=== PATIENT | male | born 1970 | race Caucasian/White ===

== ENCOUNTER 2019-03-26 16:09 | Emergency (ER) | payer OTHER ==
[~2019-03-26] VITALS: Ht 190.5 cm; Wt 150.0 kg
[2019-03-26] MEDS ORDERED: VITA1CAP25 PO (20:03)
[2019-03-26] MEDS ORDERED: NAPR-885 PO (20:03)
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
[2019-03-26] MEDS ORDERED: IBUP80TA PO (21:45)
[2019-03-26] MEDS ORDERED: CYCL5TAB PO (21:45)
[2019-03-26] MEDS ORDERED: KETOROLAC TROMETHAMINE 10 MG TAB PO ONE (21:45)
[2019-03-26] MEDS ORDERED: CYCLOBENZAPRINE 5MG TABLET PO ONE (21:45)
[2019-03-26 22:23] VITALS: BP 146/81
--- NOTE | 2019-03-27 14:04 | ED PDOC ---
Post-Departure Follow-Up dr salter and dr ding faxed formal report of ct c spine for Pia Victoria MD Mar 27, 2019 14:04
== END 2019-03-26 22:24 | disposition home or self-care (01) ==
LOC: M ED 16:09
DX: S06.0X0A Concussion without loss of consciousness, initial encounter (principal); S12.500A Unspecified displaced fracture of sixth cervical vertebra, initial encounter for closed fracture; V49.49XA Driver injured in collision with other motor vehicles in traffic accident, initial encounter; Y92.410 Unspecified street and highway as the place of occurrence of the external cause; I10 Essential (primary) hypertension; E78.5 Hyperlipidemia, unspecified; E03.9 Hypothyroidism, unspecified

== ENCOUNTER 2024-09-04 15:28 | Observation (INO) | payer OTHER ==
[~2024-09-04] VITALS: Ht 190.5 cm; Wt 126.6 kg
[~2024-09-04 15:28] MED LIST: CYCL5TAB4 PO; IBUP80TA PO; NAPR-885 PO; VITA1CAP25 PO
[2024-09-04 16:04] LABS: BASO # 0.1 10^3/uL (0.0-0.2); BASO % 0.5 % (0.0-1.0); EOS # 0.2 10^3/uL (0.0-0.5); EOS % 2.4 % (0.0-3.0); HEMATOCRIT 49.7 % (42.0-52.0); HEMOGLOBIN 18.1 g/dl (13.5-17.5); LYMPH # 2.7 10^3/uL (1.5-5.0); LYMPH % 29.7 % (24.0-44.0); MEAN CORPUSCULAR HEMOGLOBIN 34.3 pg (27.0-33.0); MEAN CORPUSCULAR HGB CONC 36.4 g/dl (32.0-36.5); MEAN CORPUSCULAR VOLUME 94.3 fl (80.0-96.0); MONO # 0.8 10^3/uL (0.0-0.8); MONO % 8.2 % (2.0-8.0); NEUTROPHILS # 5.4 10^3/uL (1.5-8.5); NEUTROPHILS % 58.8 % (36.0-66.0); RED BLOOD COUNT 5.27 10^6/uL (4.30-6.10); WHITE BLOOD COUNT 9.2 10^3/uL (4.0-10.0)
[2024-09-04] MEDS: METOPROLOL 5 MG/5 ML VIAL IV SCH (16:04)
[2024-09-04] MEDS ORDERED: METF-877 PO (16:10)
[2024-09-04] MEDS ORDERED: GLIM2TAB4 PO (16:10)
[2024-09-04] MEDS ORDERED: SIMV40TA20 PO (16:10)
[2024-09-04] MEDS ORDERED: LISI40TA4 PO (16:10)
[2024-09-04] MEDS ORDERED: LEVO50TA5 PO (16:10)
[2024-09-04] MEDS ORDERED: ERGO500029 PO (16:10)
[2024-09-04 16:21] LABS: PLATELET COUNT, AUTOMATED 95 10^3/uL (150-450)
[2024-09-04 16:26] LABS: ALKALINE PHOSPHATASE 130 U/L (40-129); ALT/SGPT 60 U/L (7.0-40); AST/SGOT 51 U/L (<34); BILIRUBIN,DIRECT 0.5 MG/DL (<0.4); BILIRUBIN,TOTAL 1.3 MG/DL (0.3-1.2); BLOOD UREA NITROGEN 19 MG/DL (9-23); CALCIUM LEVEL 9.7 MG/DL (8.5-10.1); CARBON DIOXIDE LEVEL 24 MMOL/L (20-31); CHLORIDE LEVEL 101 MMOL/L (98-107); CK-MB VALUE MASS 1.9 NG/ML (<3.6); CREATININE FOR GFR 0.79 MG/DL (0.70-1.30); GLOMERULAR FILTRATION RATE > 90.0 (>56); GLUCOSE, FASTING 351 MG/DL (60-100); MAGNESIUM LEVEL 1.6 MG/DL (1.8-2.4); PHOSPHORUS LEVEL 2.7 MG/DL (2.5-4.9); POTASSIUM SERUM 4.1 MMOL/L (3.5-5.1); SODIUM LEVEL 136 MMOL/L (136-145); TOTAL PROTEIN 7.6 G/DL (5.7-8.2)
[2024-09-04 16:29] LABS: PARTIAL THROMBOPLASTIN TIME 31.2 SECONDS (24.8-34.2); PROTHROMBIN TIME 13.5 SECONDS (12.5-14.5)
[2024-09-04 16:31] LABS: FREE T4 1.21 NG/DL (0.89-1.76); THYROID STIMULATING HORMONE 2.838 uIU/ML (0.55-4.78)
[2024-09-04 16:32] LABS: CPK CREATINE PHOSPHOKINASE 66 U/L (46-171); MB/CK RELATIVE INDEX 2.87 (< OR =4)
[2024-09-04 17:26] LABS: CK-MB VALUE MASS 2.6 NG/ML (<3.6)
[2024-09-04 17:29] LABS: MB/CK RELATIVE INDEX 2.2 (< OR =4)
[2024-09-04] MEDS: MAGNESIUM OXIDE 400MG TAB (MAG-OX) PO ONE (18:22)
[2024-09-04] MEDS: APIXABAN 5 MG TAB (ELIQUIS) PO ONE (18:27)
[2024-09-04] MEDS: METOPROLOL SUCC (TopROL XL) 50MG **XL** TAB PO ONE (18:28)
[2024-09-04] MEDS ORDERED: METF500T13 PO (18:32)
[2024-09-04] MEDS ORDERED: HOME MED LIST COMPLETE! XX SCH (18:35)
[2024-09-04] MEDS ORDERED: GLUCAGON INJ 1MG VIAL SC PRN (20:35)
[2024-09-04] MEDS ORDERED: DEXTROSE 50% 50ML SYRINGE IV PRN (20:35)
[2024-09-04] MEDS ORDERED: GLUCOSE 4 GM CHEW PO PRN (20:35)
[2024-09-04] MEDS: INSULIN LISPRO (NovoLOG) PER UNIT SC SCH (21:52)
[2024-09-04] MEDS: amLODIPine 5 MG TAB PO SCH (21:52)
[2024-09-04 22:45] VITALS: BP 112/76; TEMP 98; O2SAT 98
[2024-09-05 04:01] VITALS: BP 121/88; TEMP 97.2; O2SAT 98
[2024-09-05 04:36] LABS: HEMATOCRIT 46.4 % (42.0-52.0); HEMOGLOBIN 16.6 g/dl (13.5-17.5); MEAN CORPUSCULAR HEMOGLOBIN 33.9 pg (27.0-33.0); MEAN CORPUSCULAR HGB CONC 35.8 g/dl (32.0-36.5); MEAN CORPUSCULAR VOLUME 94.7 fl (80.0-96.0); PLATELET COUNT, AUTOMATED 101 10^3/uL (150-450); WHITE BLOOD COUNT 7.6 10^3/uL (4.0-10.0)
[2024-09-05 04:46] LABS: CHOLESTEROL RISK RATIO 6.42 (<5); HDL CHOLESTEROL 33.3 MG/DL (>40); LDL CHOLESTEROL 122.9 MG/DL (<100); NON-HDL-C 180.7 MG/DL
[2024-09-05 04:47] LABS: ALBUMIN 3.2 G/DL (3.2-5.2); ALKALINE PHOSPHATASE 109 U/L (40-129); ALT/SGPT 51 U/L (7.0-40); AST/SGOT 53 U/L (<34); BILIRUBIN,TOTAL 0.8 MG/DL (0.3-1.2); BLOOD UREA NITROGEN 20 MG/DL (9-23); CALCIUM LEVEL 8.8 MG/DL (8.5-10.1); CARBON DIOXIDE LEVEL 26 MMOL/L (20-31); CHLORIDE LEVEL 104 MMOL/L (98-107); CREATININE FOR GFR 0.62 MG/DL (0.70-1.30); GLOMERULAR FILTRATION RATE > 90.0 (>56); GLUCOSE, FASTING 312 MG/DL (60-100); POTASSIUM SERUM 3.8 MMOL/L (3.5-5.1); SODIUM LEVEL 137 MMOL/L (136-145); THYROID STIMULATING HORMONE 2.09 uIU/ML (0.55-4.78); TOTAL PROTEIN 6.5 G/DL (5.7-8.2)
[2024-09-05 05:03] LABS: HEMOGLOBIN A1c 9.7 % (4.0-6.0)
[2024-09-05] MEDS ORDERED: ENOXAPARIN 60MG/0.6ML SYRINGE (J1650 PER 10MG) SC SCH (06:00)
[2024-09-05] MEDS: LEVOTHYROXINE 50MCG TABLET (0.05MG) PO SCH (06:48)
[2024-09-05 07:56] VITALS: BP 119/79; TEMP 97.3; O2SAT 97
[2024-09-05] MEDS: ENOXAPARIN 120MG/0.8ML SYRINGE SC SCH (08:54)
[2024-09-05] MEDS: ASPIRIN 325 MG TAB PO SCH (08:55)
[2024-09-05 09:00] VITALS: BP 119/79
[2024-09-05] MEDS: METOPROLOL TART 25 MG TABLET PO SCH (09:00)
[2024-09-05] MEDS: lisinopriL 40MG TAB PO SCH (09:01)
[2024-09-05] MEDS: INSULIN LISPRO (NovoLOG) PER UNIT SC SCH (09:10)
[2024-09-05] MEDS ORDERED: ASPI-1 PO (10:11)
[2024-09-05] MEDS ORDERED: METO1TAB87 PO (10:11)
[2024-09-05] MEDS ORDERED: SIMVASTATIN 20 MG TAB PO SCH (21:00)
== END 2024-09-05 11:29 | disposition home or self-care (01) ==
LOC: M ED 15:28 → M ED INP 15:29 → M PCU 22:40
PROVIDERS: ADMIT Student in an Organized Health Care Education/Training Program; ATTEND Student in an Organized Health Care Education/Training Program
DX: I48.91 Unspecified atrial fibrillation (principal); I10 Essential (primary) hypertension; Z91.148 Patient's other noncompliance with medication regimen for other reason; E03.9 Hypothyroidism, unspecified; E78.5 Hyperlipidemia, unspecified; E11.65 Type 2 diabetes mellitus with hyperglycemia; E55.9 Vitamin D deficiency, unspecified; Z82.49 Family history of ischemic heart disease and other diseases of the circulatory system; Z87.891 Personal history of nicotine dependence; Z79.899 Other long term (current) drug therapy; Z79.82 Long term (current) use of aspirin; Z79.890 Hormone replacement therapy; Z79.84 Long term (current) use of oral hypoglycemic drugs
CPT/HCPCS: 36415; 71045; 80048; 80053; 80061; 80076; 82550; 82553; 82652; 83036; 83735; 83880; 84100; 84439; 84443; 84484; 85025; 85027; 85049; 85055; 85610; 85730; 86376; 93005; 93041; 94760; 96372; 96374; 99285; G0378; J1650; J1815